=== PATIENT | female | born 1930 | race Caucasian/White ===

== ENCOUNTER → 2021-07-06 | Outpatient (REF) | payer MEDICARE | LOC: M LAB REF 14:11 | PROVIDERS: ATTEND Physician Assistant | DX: B34.9 Viral infection, unspecified (principal) ==

== ENCOUNTER → 2021-07-18 | Outpatient (CLI) | payer MEDICARE ==
[~2021-07-18] MED LIST: ASPI81TA26 PO; ATEN25TA PO; DEXI60CA2 PO; LEVO50TA5 PO; LIDOCAINE 1% MDV 20ML VIAL As Ordered ONE; LOSA50TA88 PO; MAXZTAB PO; POTA10CA32 PO; SIMV40TA20 PO; ZETI10TA16 PO
--- NOTE | 2021-07-18 10:38 | REP ---
INDICATION: HEPATOMEGALY. COMPARISON: None. TECHNIQUE: Real-time sonographic evaluation of the liver with Doppler assess for mass FINDINGS: There is no evidence of a solid hepatic mass by ultrasound. IMPRESSION: No evidence of a solid mass. <Electronically signed by Anselmo Sherman > 07/18/21 [id number]
[2021-07-18 13:15] VITALS: BP 133/59
--- NOTE | 2021-07-18 17:00 | REP ---
INDICATION: LIVER BIOPSY. COMPARISON: None. TECHNIQUE: The procedure was performed under the direct supervision of Dr. Gardner. 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 The procedure was originally slated for ultrasound guidance, however, preliminary sonography does not demonstrate the liver lesion. The patient was then taken to CT scan for biopsy. The risks and benefits of the procedure were explained to the patient and informed consent was obtained. The lesion in the left lobe of the liver was localized using CT guidance. The skin was prepped and draped in a sterile fashion. 6 mL of 1% lidocaine was used as a local anesthetic. Using CT guidance a 19/20 gauge coaxial needle biopsy system was inserted and advanced into the lesion. Five core biopsy samples were obtained and sent to the lab for analysis. The patient tolerated the procedure well and there were no immediate complications. Estimated blood loss: Less than 1 mL After the appropriate amount to monitor convalescence the patient was discharged from the department. FINDINGS: None IMPRESSION: CT-guided liver biopsy. <Electronically signed by Girma Gonzales > 07/18/21 [id number] <Electronically signed by Landon Gardner > 07/18/21 [id number]
== END ==
LOC: M IRPRO 09:16
PROVIDERS: ATTEND Internal Medicine Pulmonary Disease
DX: R16.0 Hepatomegaly, not elsewhere classified (principal); R91.8 Other nonspecific abnormal finding of lung field